=== PATIENT | female | born 1975 ===

== ENCOUNTER 2016-05-14 08:52 | Emergency (ER) | payer SELFPAY ==
[2016-05-14 08:57] VITALS: BP 122/84; PULSE 80; TEMP 97; O2SAT 99
[2016-05-14 09:02] VITALS: BMI 29.2
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
[2016-05-14] MEDS ORDERED: Sodium Chloride 0.9% 1,000 ML IV STA (09:39)
[2016-05-14 10:11] LABS: BASO # 0.1 K/uL (0.0-0.2); BASO % 1.3 % (0.0-2.0); EOS # 0.2 K/uL (0.0-0.7); EOS % 3.2 % (0.0-4.0); HEMATOCRIT 38.6 % (34.0-47.0); LYMPH # 2.4 K/uL (1.0-4.3); LYMPH % 48.9 % (20.0-40.0); MEAN CELL VOLUME 84.2 fl (81.0-99.0); MEAN CORPUSCULAR HEMOGLOBIN 28.7 pg (27.0-31.0); MEAN CORPUSCULAR HGB CONC 34.1 g/dL (33.0-37.0); MEAN PLATELET VOLUME 10.2 fl (7.2-11.7); MONO # 0.3 K/uL (0.0-0.8); MONO % 5.9 % (0.0-10.0); NEUT % 40.7 % (50.0-75.0); NRBC % 0.1 % (0.0-0.0); RED CELL DISTRIBUTION WIDTH 13.5 % (11.5-14.5)
[2016-05-14 10:25] LABS: ALB/GLOB RATIO 1.2 (1.0-2.1); ALKALINE PHOSPHATASE 119 U/L (38-126); ALT/SGPT 161 U/L (9-52); AST/SGOT 128 U/L (14-36); BILIRUBIN,TOTAL 0.6 mg/dl (0.2-1.3); BLOOD UREA NITROGEN 15 mg/dl (7-17); CALCIUM 9.4 mg/dL (8.4-10.2); CARBON DIOXIDE 26 mmol/L (22-30); CHLORIDE 105 mmol/L (98-107); GFR AFRICAN-AMERICAN > 60; GLUCOSE,RANDOM 164 mg/dL (65-105); POTASSIUM 4.1 MMOL/L (3.6-5.0); SODIUM 142 mmol/l (132-148); TOTAL PROTEIN 7.8 G/DL (6.3-8.2)
[2016-05-14 10:33] LABS: PARTIAL THROMBOPLASTIN TIME 26.1 SECONDS (23.3-32.5)
--- NOTE | 2016-05-14 10:37 | RAD ---
HISTORY: pain general COMPARISON: Comparison is made to 05/02/2016 TECHNIQUE: Chest PA and lateral FINDINGS: LUNGS: No active pulmonary disease. PLEURA: No significant pleural effusion identified. No pneumothorax apparent. CARDIOVASCULAR: Normal. OSSEOUS STRUCTURES: No significant abnormalities. VISUALIZED UPPER ABDOMEN: Normal. OTHER FINDINGS: None. IMPRESSION: No active disease.
--- NOTE | 2016-05-14 14:07 | CARD ---
APPROVED REPORT EKG Measurement Heart [id number] <Conclusion> Normal sinus rhythm Normal ECG
== END 2016-05-14 13:18 | disposition home or self-care (01) ==
LOC: H.ER 08:52
DX: R74.8 Abnormal levels of other serum enzymes (principal); G89.29 Other chronic pain; M54.9 Dorsalgia, unspecified; E11.9 Type 2 diabetes mellitus without complications; V79.50XA Passenger on bus injured in collision with unspecified motor vehicles in traffic accident, initial encounter; Y93.9 Activity, unspecified

== ENCOUNTER 2017-04-26 22:02 | Emergency (ER) | payer SELFPAY ==
[2017-04-26 22:02] VITALS: BMI 29.2
[2017-04-26 22:14] VITALS: TEMP 97.4
--- NOTE | 2017-04-26 23:03 | ED PDOC ---
HPI: Female Pain Time Seen by Provider: 04/26/17 22:17 Chief Complaint (Nursing): Female Genitourinary Chief Complaint (Provider): vaginal bleeding History Per: Patient History/Exam Limitations: no limitations Onset/Duration Of Symptoms: Days (2) Current Symptoms Are (Timing): Still Present Pain Scale Rating Of: 8 Quality Of Discomfort: Cramping Associated Symptoms: Nausea, Other (cramping pelvic pain ) Alleviating Factors: None Additional Complaint(s): 41 yo ,f, A1, PMhx/o prediabetes, HLD, Uterine Fibroids, Menopause at age 34 presents to Ed c/o vaginal bleeding started 2 days ago, using 3 pads/day, associated with cramping pelvic pain, intermittent and nausea for the last 7 days. She Denies fever, vaginal discharge, dysuria, vomiting, diarrhea, chest pain, SOB, lightheadedness. LMP: 7 years ago. sexually active PMD: [facility]. Dr Smith Past Medical History Reviewed: Historical Data, Nursing Documentation, Vital Signs Vital Signs: Last Vital Signs Temp 97.4 F L 04/26/17 22:10 Pulse 76 04/26/17 22:10 Resp 18 04/26/17 22:10 BP 155/90 H 04/26/17 22:10 Pulse Ox 98 04/26/17 22:10 - Medical History PMH: Diabetes (borderline), Hypercholesterolemia (stop taking it 3 week ago because ran out), Hyperlipidemia (stopped taking it 3 weeks ago when she ran out ) Denies: HTN - Surgical History Surgical History: Tonsillectomy - Family History Family History: States: Unknown Family Hx - Home Medications Home Medications: Ambulatory Orders Medication Instructions Recorded Ciprofloxacin/Ciprofloxa HCl 500 mg PO BID #10 ter 09/18/14 [Ciprofloxacin] Hydrocortisone [Hydrocortisone 1% 30 ml TP BID #1 lot 09/18/14 Lotion 60 ml] Loperamide [Imodium] 2 mg PO PRN PRN #30 cap 10/09/14 Acetaminophen/Hydrocodone Bi 1 tab PO QID PRN #10 tab 10/26/14 [Vicodin 300 mg-5 mg] Albuterol Sulfate [Proair Hfa] 0.09 mg IH Q6H PRN #2 inh 03/17/16 Azithromycin [Zithromax] 250 mg PO DAILY 5 Days tab 03/17/16 Ibuprofen [Motrin] 600 mg PO TID 7 Days tab 03/17/16 predniSONE [predniSONE Tab] 20 mg PO BID 5 Days tab 03/17/16 Ibuprofen [Motrin] 600 mg PO TID 7 Days tab 05/14/16 - Allergies Allergies/Adverse Reactions: Allergies Allergy/AdvReac Type Severity Reaction Status Date / Time No Known Allergies Allergy Verified 05/14/16 09:18 Review of Systems ROS Statement: Except As Marked, All Systems Reviewed And Found Negative Gastrointestinal: Positive for: Nausea Genitourinary Female: Positive for: Vaginal Bleeding, Pelvic Pain Physical Exam - Physical Exam Appears: Positive for: No Acute Distress Head Exam: Positive for: ATRAUMATIC, NORMOCEPHALIC Skin: Positive for: Normal Color Eye Exam: Positive for: Normal appearance ENT: Positive for: Normal ENT Inspection Neck: Positive for: Normal Cardiovascular/Chest: Positive for: Regular Rate, Rhythm. Negative for: Murmur Respiratory: Positive for: Normal Breath Sounds. Negative for: Crackles, Rales , Rhonchi, Wheezing Gastrointestinal/Abdominal: Positive for: Soft. Negative for: Tenderness, Distended, Guarding, Rebound Back: Positive for: Normal Inspection Extremity: Positive for: Normal ROM. Negative for: Tenderness, Pedal Edema, Calf Tenderness Neurologic/Psych: Positive for: Alert, Oriented - Laboratory Results Result Diagrams: 04/26/17 23:16 04/26/17 23:16 - ECG O2 Sat by Pulse Oximetry: 98 Medical Decision Making Medical Decision Makin:30 Impression -Postmenopausal vaginal bleeding -Uterine Fibroids Differential Endometrial polyp, Endometrial Ca, Uterine Fibroid, Pyelonephritis. Plan CBC, CMP, PT,PTT Urine dip, Urine preg TV US LAbs reviewed: Glucose 214 , transaminitits AST/ALT 50/81 Urine preg test: negative, Urine dip: hematuria. nitrate neg, leukocyte sterase neg. TV US: Submucosal Uterine fibroid 1.6 cm . LEft ovary cyst 3.3 x 2.5 x 2.2 cm Patient denies more vaginal bleeding in ED. Patient clear to be discharged. Disposition - Clinical Impression Clinical Impression: Submucous uterine fibroid - Disposition Disposition: Routine/Home Disposition Time: 01:20 Condition: GOOD Forms: [employer] ([place])
[2017-04-26 23:29] LABS: BASO # 0.1 K/uL (0.0-0.2); BASO % 1.4 % (0.0-2.0); EOS # 0.2 K/uL (0.0-0.7); EOS % 2.5 % (0.0-4.0); HEMOGLOBIN 12.8 g/dL (12.0-16.0); LYMPH # 3.1 K/uL (1.0-4.3); LYMPH % 51.3 % (20.0-40.0); MEAN CORPUSCULAR HEMOGLOBIN 28.4 pg (27.0-31.0); MEAN CORPUSCULAR HGB CONC 33.5 g/dL (33.0-37.0); MEAN PLATELET VOLUME 10.2 fl (7.2-11.7); MONO # 0.4 K/uL (0.0-0.8); MONO % 6.8 % (0.0-10.0); NEUT # 2.3 K/uL (1.8-7.0); NRBC % 0.1 % (0.0-0.0); RBC 4.5 Mil/uL (3.80-5.20); RED CELL DISTRIBUTION WIDTH 13.4 % (11.5-14.5)
[2017-04-26 23:52] LABS: ALB/GLOB RATIO 1.2 (1.0-2.1); ALT/SGPT 81 U/L (9-52); AST/SGOT 50 U/L (14-36); BLOOD UREA NITROGEN 12 mg/dl (7-17); CALCIUM 9.2 mg/dL (8.4-10.2); GFR AFRICAN-AMERICAN > 60; GFR NON-AFRICAN AMERICAN > 60; PARTIAL THROMBOPLASTIN TIME 35.2 Seconds (25.6-37.1); PROTHROMBIN TIME 10.6 Seconds (9.8-13.1)
[2017-04-27 01:22] VITALS: BP 120/81; PULSE 74; RESP 20; O2SAT 100
--- NOTE | 2017-04-27 10:31 | US ---
PROCEDURE: HISTORY: postmenopausal vaginal bleeding.Hx/o Uterine fibr COMPARISON: 06/25/2016 TECHNIQUE: FINDINGS: The uterus measures 6.2 x 5.5 x 4.9 centimeters. The endometrium measures 7 millimeters. There is a posterior leiomyoma measuring roughly 2 centimeters. This is unchanged. There is also a subendometrial cyst measuring 2 millimeters. The right ovary measures 2.2 x 2.2 x 1.6 centimeters. Left arm measures 4.1 x 3.4 centimeters contains a 3.4 centimeter simple cyst. IMPRESSION: 3.4 centimeter simple cyst in the left ovary for which followup in 2-3 menstrual cycles is recommended document resolution/stability.
== END 2017-04-27 01:26 | disposition home or self-care (01) ==
LOC: H.ER 22:02
DX: D25.0 Submucous leiomyoma of uterus (principal); N83.292 Other ovarian cyst, left side; E78.00 Pure hypercholesterolemia, unspecified; Z78.0 Asymptomatic menopausal state